=== PATIENT | male | born 1985 | race Caucasian/White ===

== ENCOUNTER 2018-10-07 13:33 | Emergency (ER) | payer OTHER ==
--- NOTE | 2018-10-07 13:57 | Emergency Department Record ---
History of Present Illness - General Chief Complaint: Abdominal Pain Stated Complaint: LT SIDE ABD PAIN Time Seen by Provider: 10/07/18 13:56 Source: Patient Mode of Arrival: Ambulatory Limitations: No limitations - History of Present Illness Initial Comments: 33 yo male presents with left flank pain for about 3 days. The intensity comes and goes but the pain is constant at all times. He has some decreased appetite. He normally has 6 BM's day and he is only having 2 the last 3 days. No rash. He has inguinal hernias that are not painful. NO cough or chest pain. No hematuria. He denies trauma. No fever. No diarrhea. No rash. No cough. He does lift a lot at work. MD Complaint: Abdominal pain -: Days(s) (3) Location: LUQ, LLQ Radiation: LUQ, LLQ Migration to: LUQ, LLQ Quality: Aching Consistency: Constant Improves With: Nothing Worsens With: Movement Context: Other Associated Symptoms: Anorexia, Constipation - Related Data Previous Rx's Medication Instructions Recorded Ciprofloxacin HCl [Cipro] 500 mg PO Q12HR #14 tablet 10/07/18 Metronidazole [Flagyl] 500 mg PO TID #21 tablet 10/07/18 Ondansetron [Zofran Odt] 4 mg PO NOW #15 tab.rapdis 10/07/18 Allergies Allergy/AdvReac Type Severity Reaction Status Date / Time No Known Allergies Allergy none Verified 10/07/18 13:59 Review of Systems Constitutional: Denies: Chills, Fever, Malaise, Weakness Eyes: Denies: Eye discharge ENT: Denies: Congestion, Throat pain Respiratory: Denies: Cough, Dyspnea Cardiovascular: Denies: Chest pain, Palpitations, Syncope Endocrine: Denies: Fatigue Gastrointestinal: Reports: Abdominal pain (left flank), Constipation, Nausea. Denies: Diarrhea Genitourinary: Denies: Dysuria, Frequency, Hematuria Musculoskeletal: Denies: Arthralgia, Back pain, Myalgia Skin: Denies: Bruising, Change in color, Rash Neurological: Denies: Headache, Numbness, Weakness Psychiatric: Denies: Anxiety Hematological/Lymphatic: Denies: Blood Clots, Easy bleeding, Easy bruising, Swollen glands Past Medical History - SOCIAL HISTORY Smoking Status: Never smoker Alcohol Use Comment: 4 days a week-beer - RESPIRATORY Hx Respiratory Disorders: No - CARDIOVASCULAR Hx Cardio Disorders: No - NEURO Hx Neuro Disorders: No - GI Hx GI Disorders: Yes Hx Rectal Bleeding: Yes (infrequently) - Hx Genitourinary Disorders: No - ENDOCRINE Hx Endocrine Disorders: No - MUSCULOSKELETAL Hx Musculoskeletal Disorders: No - PSYCH Hx Psych Problems: Yes Hx Depression: Yes (a few years ago) - HEMATOLOGY/ONCOLOGY Hx Hematology/Oncology Disorders: No Family Medical History Hx Cancer: Grandparents *Cancer Comment: Maternal grandmother-colon cancer Physical Exam - General General Appearance: Alert, Oriented x3, Cooperative, No acute distress Limitations: No limitations - Head Head exam: Atraumatic, Normal inspection - Eye Eye exam: Normal appearance. negative: Conjunctival injection - ENT ENT exam: Normal exam Ear exam: Normal external inspection Nasal Exam: Normal inspection Mouth exam: Normal external inspection Teeth exam: Normal inspection - Neck Neck exam: Normal inspection - Respiratory Respiratory exam: Normal lung sounds bilaterally. negative: Respiratory distress - Cardiovascular Cardiovascular Exam: Regular rate, Normal rhythm, Normal heart sounds Peripheral Pulses: 2+: Radial (R), Radial (L) - GI/Abdominal GI/Abdominal exam: Soft, Tenderness (tender along the left lateral abdomen, no rash, soft). negative: Normal bowel sounds, Diminished bowel sounds, Distended , Guarding, Rebound, Rigid - Rectal Rectal exam: Deferred - exam: Deferred - Extremities Extremities exam: Normal inspection, Full ROM, Normal capillary refill. negative: Tenderness Image of Full Body: 1 - tender to palpation, no rash, no swelling, normal appearance - Back Back exam: Reports: CVA tenderness (L), Full ROM, Muscle spasm, Tenderness. Denies: Paraspinal tenderness - Neurological Neurological exam: Alert, Oriented X3 - Psychiatric Psychiatric exam: Normal affect, Normal mood. negative: Agitated - Skin Skin exam: Abrasion. negative: Rash Course - Reevaluation(s) Reevaluation #1: The CBC was reviewed. WBC is 14 The CMP demonstrated sodium mildly decreased at 129, AG 18, Alk phos 83 AST and ALT normal. Lipase mildly elevated at 75 10/07/18 15:[address] was discussed with Dr Desouza of radiology. The patient has non specific fat stranding on the left near the tail of the pancreas extending inferior. No changes of the small or large bowel. No hematoma. Very small amount of non specific fluid. The etiology is not completely clear. The patient does admit to drinking a daily 6 pack of beer. He is afebrile, he is eating and drinking, the abdomen is very soft and benign. he is tender lateral flank area We discussed the options of over night observation vs recheck in the ED given the CT findings. He choose recheck in the ED. We discussed that the pancreas is a possibility with his alcohol consumption. He can have his labs rechecked in the ED on return visit. We discussed returning sooner if worse, any fever, vomiting or uncontrolled pain. He will not drink alcohol 10/07/18 15:52 No clear signs that this is an infection, but we discussed the elevated WBC counts and CT findings. He will be placed on Cipro and Flagyl as well as well as he is recheck over the next 24 hours 10/07/18 15:58 Medical Decision Making - Lab Data Result diagrams: 10/07/18 14:20 10/07/18 14:20 Disposition Disposition: Discharge Clinical Impression: Abdominal pain Disposition: Home, Self-Care Condition: (1) Good Instructions: Abdominal Pain (ED) Additional Instructions: Return immediately if the pain is uncontrolled, any fever, vomiting or new concerns or symptoms Return tomorrow without fail after work for a recheck of the labs and your examination Prescriptions: Ciprofloxacin HCl [Cipro] 500 mg PO Q12HR #14 tablet Metronidazole [Flagyl] 500 mg PO TID #21 tablet Ondansetron [Zofran Odt] 4 mg PO NOW #15 tab.rapdis Referrals: WILLAM PATEL [MEDICAL DOCTOR] - Forms: Patient Portal Access Time of Disposition: 15:59 Quality - Quality Measures Quality Measures: N/A - Blood Pressure Screening Does Patient Have Any of the Following: No Blood Pressure Classification: Pre-Hypertensive BP Reading Systolic Measurement: 139 Diastolic Measurement: 87 Screening for High Blood Pressure: < Pre-Hypertensive BP, F/U Documented > [ G8950] Pre-Hypertensive Follow-up Interventions: Referral to alternative/primary care provider.
[2018-10-07] MEDS ORDERED: ONDANSETRON HCL IV 4 MG/2 ML VIAL IVP ONE (14:05)
[2018-10-07] MEDS ORDERED: KETOROLAC 30 MG/ML VIAL IVP ONE (14:05)
[2018-10-07 14:40] LABS: BLOOD UREA NITROGEN 13 mg/dL (6-20); CREATININE 0.5 mg/dL (0.7-1.2); EST GLOMERULAR FILTRATION RATE > 60 mL/min; TOTAL PROTEIN 6.2 g/dL (6.6-8.7)
[2018-10-07 14:42] LABS: GLUCOSE,RANDOM 100 mg/dL (74-109)
[2018-10-07 14:45] LABS: ALB/GLOB RATIO 1.1 (1.1-1.8); ALBUMIN 3.3 g/dL (4.0-5.0); ALKALINE PHOSPHATASE 83 U/L (55-149); ALT/SGPT 5 U/L (<41); AST/SGOT 5 U/L (10.0-50.0)
[2018-10-07] MEDS ORDERED: 0.9 % SODIUM CHLORIDE 1,000 ML BAG IV ONE (14:47)
[2018-10-07 14:49] LABS: HEMATOCRIT 30.3 % (42.0-52.0); HEMOGLOBIN 13.9 gm/dl (14.0-18.0); MEAN CELL VOLUME 90.4 fl (81-97); MEAN CORPUSCULAR HGB CONC 45.9 g/dl (32-36); PLATELET COUNT 139 K/uL (130-400); RED BLOOD COUNT 3.35 M/uL (4.40-5.70); WHITE BLOOD COUNT W/O DIFF 14.2 K/uL (4.2-12.2)
[2018-10-07 14:51] LABS: MEAN CORPUSCULAR HEMOGLOBIN 41.4 pg (27-33); RED CELL DISTRIBUTION WIDTH 12.1 % (11.5-14.5)
[2018-10-07 14:52] LABS: GRAN % 73.9 % (47-80); LYMPH % 15.3 % (16-45); MEAN PLATELET VOLUME 9.7 fl (7.4-10.4); MONO % 0.2 % (0-9)
[2018-10-07] MEDS ORDERED: MORPHINE SULFATE 10 MG/ML VIAL IVP ONE (15:08)
[2018-10-07 15:09] LABS: URINE APPEARANCE CLEAR; URINE BILIRUBIN NEGATIVE (NEGATIVE); URINE BLOOD NEGATIVE (NEGATIVE); URINE COLOR YELLOW; URINE GLUCOSE (UA) NEGATIVE (NEGATIVE); URINE KETONE NEGATIVE (NEGATIVE); URINE LEUKOCYTE ESTERASE NEGATIVE (NEGATIVE); URINE NITRITE NEGATIVE (NEGATIVE); URINE PROTEIN NEGATIVE (NEGATIVE); URINE UROBILINOGEN 0.2 E.U./dL (0.20 - 1.00)
[2018-10-07] MEDS ORDERED: ONDANSETRON 4 MG ODT TABLET SL ONE (15:49)
[2018-10-07] MEDS ORDERED: HYDROCODONE/APAP 5/325MG TABLET PO ONE (15:49)
--- NOTE | 2018-10-09 21:30 | CT SCAN REPORT ---
EXAM: CT SCAN ABDOMEN/PELVIS WO CONTRAST HISTORY: LEFT ABDOMEN AND FLANK PAIN. POSSIBLE BLOOD IN STOOL. TECHNIQUE: Thin-collimation helical CT examination of the abdomen and pelvis is performed without oral or intravenous contrast administration. Lack of oral and IV contrast utilization limits evaluation of bowel and solid viscera. COMPARISON: None. FINDINGS: There is minor dependent atelectasis in each lung base. The lung bases are otherwise clear. No pleural or pericardial effusion. The heart is not enlarged. There is diffuse density of the liver relative to the spleen consistent with steatosis. No suspicious focal hepatic lesion is identified. No calcified gallstone is seen. The gallbladder lumen, however, appears mildly hyperdense suggesting sludge. No pericholecystic fluid nor definite wall thickening. No biliary ductal dilatation is seen. No focal splenic lesion is seen. There is, however, fat stranding about the pancreatic tail at the level of the splenic hilum with edema/fluid extending inferiorly along the medial margin of the spleen and within the mesentery with thickening of Gerota's fascia. The etiology of this is uncertain. This could represent focal inflammation of the pancreatic tail with inferior extension of this process. There is no associated wall thickening of adjacent small bowel nor colon, though evaluation of the left colon is limited by incomplete distention. Mesenteritis or spontaneous hemorrhage is also possible. The remainder of the pancreas is normal. The adrenal glands are unremarkable. There is a 3 mm nonobstructing calculus in the lower pole of the left kidney and a questionable tiny 1 mm calculus in the lower pole of the right kidney. No renal mass is seen. The renal collecting systems are normal in caliber throughout and there is no evidence of ureteral calculus. No intrinsic urinary bladder abnormality is noted. No pelvic mass, lymphadenopathy, or free pelvic fluid. No gross bowel dilatation nor bowel wall thickening is seen, though as stated above, evaluation of the left colon is limited by lack of distention. No free intraperitoneal air. The appendix is visualized and normal in appearance. No lytic or blastic bone lesion. IMPRESSION: 1. SINGLE NONOBSTRUCTING CALCULI IN EACH KIDNEY. NO EVIDENCE OF OBSTRUCTIVE UROPATHY. 1. HEPATIC STEATOSIS. 3. RELATIVE INCREASED DENSITY WITHIN THE GALLBLADDER LUMEN, LIKELY RELATING TO SLUDGE. 4. THERE IS FAT STRANDING EXTENDING FROM THE LEVEL OF THE PANCREATIC TAIL AND SPLENIC HILUM INFERIORLY AND LATERALLY INVOLVING THE GEROTA'S FASCIA, MESENTERY , AND LATEROCONAL FASCIA. THE ETIOLOGY OF THIS IS UNCERTAIN. THIS MAY RELATE TO AN INFLAMMATORY PROCESS, SUCH A FOCAL PANCREATITIS. MESENTERITIS COULD ALSO HAVE THIS APPEARANCE. SPONTANEOUS HEMORRHAGE IS ALSO WITHIN THE DIFFERENTIAL, THOUGH NO LARGE HEMATOMA IS SEEN. JOB NUMBER: [id number] [facility]
== END 2018-10-07 16:07 | disposition home or self-care (01) ==
LOC: ER 13:33
DX: R10.12 Left upper quadrant pain (principal); R10.11 Right upper quadrant pain; D72.829 Elevated white blood cell count, unspecified
CPT/HCPCS: 99284 ×2; 96374; 96375; 83690; 85025; 80053; 81003; 74176; J1885; J2405; J2270; J7030

== ENCOUNTER 2018-10-08 15:28 | Emergency (ER) | payer OTHER ==
--- NOTE | 2018-10-08 15:49 | Emergency Department Record ---
History of Present Illness - General Chief Complaint: Abdominal Pain Stated Complaint: ABD PAIN Time Seen by Provider: 10/08/18 15:29 Source: Patient Mode of Arrival: Ambulatory Limitations: No limitations - History of Present Illness Initial Comments: The patient is here for recheck of lab work due to his visit yesterday in the ER. He was seen due to a 2 day hx of L upper AP. The patient was having some loose stools initially but that resolved. He also denied any fever, nausea, or vomiting. The patient was seen in the ER and had a very minimally elevated Lipase on his labs and was minimally dehydrated. He did have some fat stranding by his pancreas but no other specific abnormality. The patient states since he left he is feeling very mildly better. He has no pain at rest or with sitting or lying flat but only with movement. He also denies any fever, nausea, vomiting , or diarrhea and he is on Flagyl and Cipro at home. MD Complaint: Abdominal pain Onset/Timin -: Days(s) Location: L Flank, LUQ Severity: Moderate Severity scale (1-10): 6 Quality: Aching, Cramping Improves With: Nothing Worsens With: Nothing - Related Data Previous Rx's Medication Instructions Recorded Ciprofloxacin HCl [Cipro] 500 mg PO Q12HR #14 tablet 10/07/18 Metronidazole [Flagyl] 500 mg PO TID #21 tablet 10/07/18 Ondansetron [Zofran Odt] 4 mg PO NOW #15 tab.rapdis 10/07/18 Potassium Chloride 20 meq PO DAILY #7 tab.er.prt 10/08/18 Allergies Allergy/AdvReac Type Severity Reaction Status Date / Time No Known Allergies Allergy none Verified 10/08/18 15:37 Travel Screening - Travel/Exposure Within Last 30 Days Have you traveled within the last 30 days?: No - Travel/Exposure Within Last Year Have you traveled outside the [place] in the last year?: No - Additonal Travel Details Have you been exposed to anyone with a communicable illness?: No - Travel Symptoms Symptom Screening: None Review of Systems Constitutional: Denies: Chills, Fever Eyes: Denies: Eye discharge ENT: Denies: Congestion Respiratory: Denies: Cough, Dyspnea Cardiovascular: Denies: Arrhythmia Past Medical History - SOCIAL HISTORY Smoking Status: Never smoker Alcohol Use: Occasional Alcohol Use Comment: daily beer Drug Use: None - RESPIRATORY Hx Respiratory Disorders: No - CARDIOVASCULAR Hx Cardio Disorders: No - NEURO Hx Neuro Disorders: No - GI Hx GI Disorders: Yes Hx Rectal Bleeding: Yes (infrequently) Comment:: hernia - Hx Genitourinary Disorders: No - ENDOCRINE Hx Endocrine Disorders: No - MUSCULOSKELETAL Hx Musculoskeletal Disorders: No - PSYCH Hx Psych Problems: Yes Hx Depression: Yes (a few years ago) - HEMATOLOGY/ONCOLOGY Hx Hematology/Oncology Disorders: No Family Medical History Any Significant Family History?: Yes Hx Cancer: Grandparents *Cancer Comment: Maternal grandmother-colon cancer Physical Exam - General General Appearance: Alert, Oriented x3, Cooperative, No acute distress - Head Head exam: Atraumatic, Normocephalic, Normal inspection - Eye Eye exam: Normal appearance, PERRL - ENT Throat exam: Normal inspection. negative: Tonsillar erythema, Tonsillar exudate - Neck Neck exam: Normal inspection, Full ROM. negative: Tenderness - Respiratory Respiratory exam: Normal lung sounds bilaterally. negative: Respiratory distress - Cardiovascular Cardiovascular Exam: Regular rate, Normal rhythm, Normal heart sounds - GI/Abdominal GI/Abdominal exam: Soft, Tenderness (There is mild LUQ tenderness.). negative: Distended, Rebound, Rigid - Extremities Extremities exam: Normal inspection, Full ROM, Normal capillary refill. negative: Tenderness - Neurological Neurological exam: Alert, Normal gait. negative: Abnormal gait, Motor sensory deficit Course Vital Signs 10/08/18 15:31 Temperature 97.7 F Pulse Rate 96 H Respiratory 20 Rate Blood Pressure 136/97 Pulse Ox 99 - Reevaluation(s) Reevaluation #1: The patient is doing well at this time. He is resting comfortably and in no pain presently. He also has no nausea, vomiting, or diarrhea and is eating normally. I did discuss the lab tests that were basically similar to yesterdays test results. It appears the patient may have a low grade pancreatitis but clinically he does not seem severe enough to stay in the hospital. We will have the patient rest at home and recheck him tomorrow in the ER since he has no PCP to follow up with. 10/08/18 16:42 Medical Decision Making - Data Complexity MDM Data: Labs Ordered and/or Reviewed - Lab Data Result diagrams: 10/08/18 15:45 10/08/18 15:45 Disposition Disposition: Discharge Clinical Impression: Abdominal pain Qualifiers: Abdominal location: unspecified location Qualified Code(s): R10.9 - Unspecified abdominal pain Disposition: Home, Self-Care Condition: (2) Stable Instructions: Abdominal Pain (ED) Additional Instructions: Please continue your home pain medicines and take the oral potassium as directed. Please eat a very bland diet and drink plenty of fluids but do not drink alcohol. Return to the ER tomorrow morning for recheck and sooner for any worsening symptoms. Prescriptions: Potassium Chloride 20 meq PO DAILY #7 tab.er.prt Forms: Patient Portal Access Time of Disposition: 16:41 Quality - Quality Measures Quality Measures: N/A - Blood Pressure Screening View Details: Yes Does Patient Have Any of the Following: No Blood Pressure Classification: Hypertensive Reading Systolic Measurement: 136 Diastolic Measurement: 97 Screening for High Blood Pressure: < First Hypertensive BP, F/U Documented > [ G8950] First Hypertensive Follow-up Interventions: Referral to alternative/primary care provider.
[2018-10-08 15:52] LABS: BASO % 0.1 % (0-6); EOS % 0.8 % (0-6); GRAN % 70.5 % (47-80); HEMATOCRIT 33.6 % (42.0-52.0); HEMOGLOBIN 11.9 gm/dl (14.0-18.0); LYMPH % 20.4 % (16-45); MEAN CELL VOLUME 89.6 fl (81-97); MEAN CORPUSCULAR HEMOGLOBIN 31.7 pg (27-33); MEAN CORPUSCULAR HGB CONC 35.4 g/dl (32-36); MEAN PLATELET VOLUME 9.3 fl (7.4-10.4); MONO % 8.2 % (0-9); PLATELET COUNT 163 K/uL (130-400); RED BLOOD COUNT 3.75 M/uL (4.40-5.70); RED CELL DISTRIBUTION WIDTH 12.2 % (11.5-14.5); WHITE BLOOD COUNT W/O DIFF 9.3 K/uL (4.2-12.2)
[2018-10-08 16:16] LABS: BLOOD UREA NITROGEN 10 mg/dL (6-20); CREATININE 0.5 mg/dL (0.7-1.2); EST GLOMERULAR FILTRATION RATE > 60 mL/min
[2018-10-08 16:17] LABS: LIPASE 82 U/L (13-60); TOTAL PROTEIN 6.6 g/dL (6.6-8.7)
[2018-10-08 16:19] LABS: GLUCOSE,RANDOM 127 mg/dL (74-109)
[2018-10-08 16:21] LABS: ALB/GLOB RATIO 1.1 (1.1-1.8); ALBUMIN 3.5 g/dL (4.0-5.0); ALT/SGPT 66 U/L (<41); AST/SGOT 76 U/L (10.0-50.0)
[2018-10-08 16:22] LABS: ALKALINE PHOSPHATASE 95 U/L (55-149)
[2018-10-08] MEDS ORDERED: POTASSIUM CHLORIDE 20 MEQ TABLET PO ONE (16:32)
== END 2018-10-08 16:49 | disposition home or self-care (01) ==
LOC: ER 15:28
DX: R10.12 Left upper quadrant pain (principal)
CPT/HCPCS: 80053; 83690; 85025; 99283

== ENCOUNTER 2018-10-09 08:07 | Emergency (ER) | payer OTHER ==
[2018-10-09 08:24] LABS: BASO % 0.3 % (0-6); EOS % 1.7 % (0-6); GRAN % 68.6 % (47-80); HEMOGLOBIN 13.1 gm/dl (14.0-18.0); LYMPH % 20.1 % (16-45); MEAN CELL VOLUME 89.4 fl (81-97); MEAN CORPUSCULAR HEMOGLOBIN 31.6 pg (27-33); MEAN CORPUSCULAR HGB CONC 35.4 g/dl (32-36); MEAN PLATELET VOLUME 9.4 fl (7.4-10.4); MONO % 9.3 % (0-9); PLATELET COUNT 200 K/uL (130-400); RED BLOOD COUNT 4.14 M/uL (4.40-5.70); RED CELL DISTRIBUTION WIDTH 12.4 % (11.5-14.5)
[2018-10-09 08:38] LABS: BLOOD UREA NITROGEN 7 mg/dL (6-20); CREATININE 0.6 mg/dL (0.7-1.2); EST GLOMERULAR FILTRATION RATE > 60 mL/min
[2018-10-09 08:39] LABS: LIPASE 52 U/L (13-60); TOTAL PROTEIN 7.1 g/dL (6.6-8.7)
[2018-10-09 08:41] LABS: GLUCOSE,RANDOM 106 mg/dL (74-109)
[2018-10-09 08:44] LABS: ALBUMIN 3.5 g/dL (4.0-5.0); ALKALINE PHOSPHATASE 95 U/L (55-149); ALT/SGPT 73 U/L (<41); AST/SGOT 99 U/L (10.0-50.0); BILIRUBIN,DIRECT 0.3 mg/dL (0-0.3)
--- NOTE | 2018-10-09 08:51 | Emergency Department Record ---
History of Present Illness - General Chief Complaint: Recheck - Other Stated Complaint: RECHECK BLOOD WORK Time Seen by Provider: 10/09/18 08:09 Source: Patient Mode of arrival: Ambulatory Limitations: No limitations - History of Present Illness Initial Comments: The patient is here for repeat lab work due to persistent AP for the last 5 days. He was diagnosed with mild pancreatitis over the last 2 days. He now is doing much better and states his AP is much improved. There is no nausea, vomiting, diarrhea, tremors or anxiety. He is able to eat with no problems. MD Complaint: Other Onset/Timin -: Days(s) Initial Visit For: Other Returns Today for: Called because of abnormal lab/test - Related Data Previous Rx's Medication Instructions Recorded Ciprofloxacin HCl [Cipro] 500 mg PO Q12HR #14 tablet 10/07/18 Metronidazole [Flagyl] 500 mg PO TID #21 tablet 10/07/18 Ondansetron [Zofran Odt] 4 mg PO NOW #15 tab.rapdis 10/07/18 Potassium Chloride 20 meq PO DAILY #7 tab.er.prt 10/08/18 Allergies Allergy/AdvReac Type Severity Reaction Status Date / Time No Known Allergies Allergy none Verified 10/09/18 08:16 Travel Screening - Travel/Exposure Within Last 30 Days Have you traveled within the last 30 days?: No - Travel/Exposure Within Last Year Have you traveled outside the [place] in the last year?: No - Additonal Travel Details Have you been exposed to anyone with a communicable illness?: No - Travel Symptoms Symptom Screening: None Review of Systems Constitutional: Denies: Chills, Fever Eyes: Denies: Eye discharge ENT: Denies: Congestion Respiratory: Denies: Cough, Dyspnea Past Medical History - SOCIAL HISTORY Smoking Status: Never smoker Alcohol Use Comment: none in 2 days Drug Use: None - RESPIRATORY Hx Respiratory Disorders: No - CARDIOVASCULAR Hx Cardio Disorders: No - NEURO Hx Neuro Disorders: No - GI Hx GI Disorders: Yes Hx Rectal Bleeding: Yes (infrequently) Comment:: hernia - Hx Genitourinary Disorders: No - ENDOCRINE Hx Endocrine Disorders: No - MUSCULOSKELETAL Hx Musculoskeletal Disorders: No - PSYCH Hx Psych Problems: Yes Hx Depression: Yes (a few years ago) - HEMATOLOGY/ONCOLOGY Hx Hematology/Oncology Disorders: No Family Medical History Any Significant Family History?: Yes Hx Cancer: Grandparents *Cancer Comment: Maternal grandmother-colon cancer Physical Exam - General General Appearance: Alert, Oriented x3, Cooperative, No acute distress - Head Head exam: Atraumatic, Normocephalic, Normal inspection - Eye Eye exam: Normal appearance - Neck Neck exam: Normal inspection, Full ROM. negative: Tenderness - Respiratory Respiratory exam: Normal lung sounds bilaterally. negative: Respiratory distress - Cardiovascular Cardiovascular Exam: Regular rate, Normal rhythm, Normal heart sounds - GI/Abdominal GI/Abdominal exam: Soft, Normal bowel sounds. negative: Distended, Rebound, Rigid, Tenderness - Extremities Extremities exam: Normal inspection, Full ROM, Normal capillary refill. negative: Tenderness - Neurological Neurological exam: Alert, Normal gait, Oriented X3. negative: Abnormal gait, Motor sensory deficit Course Vital Signs 10/09/18 08:11 Temperature 98.1 F Pulse Rate 87 Respiratory 20 Rate Blood Pressure 138/100 Pulse Ox 100 - Reevaluation(s) Reevaluation #1: The patient is doing very well at this time. I did discuss the need for further evaluation with a family doctor and also a GI doctor due to the AP, elevated liver enzymes and abnormal CT. The patient understands and will F/U. 10/09/18 08:59 Medical Decision Making - Lab Data Result diagrams: 10/09/18 08:17 10/09/18 08:17 Lab Results 10/09/18 10/09/18 10/09/18 Range/Units 08:17 08:17 08:17 WBC 7.0 (4.2-12.2) K/uL RBC 4.14 L (4.40-5.70) M/uL Hgb 13.1 L (14.0-18.0) gm/dl Hct 37.0 L (42.0-52.0) % MCV 89.4 (81-97) fl MCH 31.6 (27-33) pg MCHC 35.4 (32-36) g/dl RDW 12.4 (11.5-14.5) % Plt Count 200 (130-400) K/uL MPV 9.4 (7.4-10.4) fl Gran % 68.6 (47-80) % Lymphocytes % 20.1 (16-45) % Monocytes % 9.3 H (0-9) % Eosinophils % 1.7 (0-6) % Basophils % 0.3 (0-6) % PT 10.0 (9.5-12.1) SECONDS INR 1.0 Sodium 137 (136-145) mmol/L Potassium 3.4 (3.4-4.5) mmol/L Chloride 99 (98-107) mmol/L Carbon Dioxide 24.0 (22-29) mmol/L Anion Gap 14.0 (7-16) BUN 7 (6-20) mg/dL Creatinine 0.6 L (0.7-1.2) mg/dL Estimated GFR > 60 mL/min Random Glucose 106 (74-109) mg/dL Calcium 8.3 L (8.6-10.0) mg/dL Total Bilirubin 0.70 (0.2-1.0) mg/dL Direct Bilirubin 0.3 (0-0.3) mg/dL AST 99 H (10.0-50.0) U/L ALT 73 H (<41) U/L Alkaline Phosphatase 95 (55-149) U/L Total Protein 7.1 (6.6-8.7) g/dL Albumin 3.5 L (4.0-5.0) g/dL Lipase 52 (13-60) U/L Disposition Disposition: Discharge Clinical Impression: Abdominal pain Qualifiers: Abdominal location: unspecified location Qualified Code(s): R10.9 - Unspecified abdominal pain Disposition: Home, Self-Care Condition: (2) Stable Instructions: Abdominal Pain (ED) Additional Instructions: Please advance to a regular diet. Please see a family doctor in 1-2 weeks for recheck and to schedule a repeat CT in 1-2 months. Also follow up with Dr. Mendoza in the Specialty clinic for an EGD. Referrals: [facility] Specialty Clinics [Provider Group] Forms: Patient Portal Access Time of Disposition: 08:50 Quality - Quality Measures Quality Measures: N/A - Blood Pressure Screening View Details: Yes Does Patient Have Any of the Following: No Blood Pressure Classification: Hypertensive Reading Systolic Measurement: 138 Diastolic Measurement: 100 Screening for High Blood Pressure: < First Hypertensive BP, F/U Documented > [ G8950] First Hypertensive Follow-up Interventions: Referral to alternative/primary care provider.
== END 2018-10-09 08:55 | disposition home or self-care (01) ==
LOC: ER 08:07
DX: R94.5 Abnormal results of liver function studies (principal); R10.9 Unspecified abdominal pain
CPT/HCPCS: 80048; 80076; 83690; 85025; 85610; 99282

== ENCOUNTER 2019-03-31 14:30 | Emergency (ER) | payer OTHER ==
--- NOTE | 2019-03-31 14:39 | Emergency Department Record ---
History of Present Illness - General Chief complaint: ENT Stated complaint: SOMETHING IN THROAT Time Seen by Provider: 03/31/19 14:32 Source: Patient Mode of Arrival: Ambulatory Limitations: No limitations - History of Present Illness Initial comments: 33 yo male presents with right side upper neck pain. He reports the pain started after throwing up this morning. He had chicken last night with macaroni and cheese. He is unaware of bones in the chicken but he feels like something is injured or stuck. He has a normal voice. No fever. No cough to day. He is able to drink fluids. The pain is slowly getting better throughout the day but not gone. MD complaint: Sore throat -: Hour(s) Location: Throat Severity: Moderate Quality: Aching Consistency: Constant Improves with: None Worsens with: Swallowing Associated Symptoms: Other (None) - Related Data Home Medications Medication Instructions Recorded Confirmed Last Taken No Home Med [NO HOME MEDS] 03/31/19 03/31/19 Unknown Allergies Allergy/AdvReac Type Severity Reaction Status Date / Time No Known Allergies Allergy none Verified 03/31/19 14:32 Review of Systems Constitutional: Denies: Chills, Fever, Malaise, Weakness Eyes: Denies: Eye discharge, Eye pain, Photophobia, Vision change ENT: Reports: Throat pain. Denies: Congestion Respiratory: Denies: Cough, Dyspnea, Hemoptysis, Stridor, Wheezes Cardiovascular: Denies: Chest pain, Palpitations, Syncope Endocrine: Denies: Fatigue, Polydipsia Gastrointestinal: Reports: Nausea, Vomiting. Denies: Abdominal pain, Diarrhea Genitourinary: Denies: Dysuria, Frequency, Hematuria Musculoskeletal: Denies: Arthralgia, Back pain, Myalgia Skin: Denies: Bruising, Change in color, Rash Neurological: Denies: Headache Psychiatric: Denies: Anxiety Hematological/Lymphatic: Denies: Easy bleeding, Easy bruising Past Medical History - SOCIAL HISTORY Smoking Status: Never smoker Alcohol Use: None Drug Use: None - RESPIRATORY Hx Respiratory Disorders: No - CARDIOVASCULAR Hx Cardio Disorders: No - NEURO Hx Neuro Disorders: No - GI Hx GI Disorders: Yes Hx Rectal Bleeding: Yes (infrequently) Comment:: hernia - Hx Genitourinary Disorders: No - ENDOCRINE Hx Endocrine Disorders: No - MUSCULOSKELETAL Hx Musculoskeletal Disorders: No - PSYCH Hx Psych Problems: Yes Hx Depression: Yes (a few years ago) - HEMATOLOGY/ONCOLOGY Hx Hematology/Oncology Disorders: No Family Medical History Any Significant Family History?: Yes Hx Cancer: Grandparents *Cancer Comment: Maternal grandmother-colon cancer Physical Exam - General General Appearance: Alert, Oriented x3, Cooperative, No acute distress Limitations: No limitations - Head Head exam: Atraumatic, Normal inspection - Eye Eye exam: Normal appearance, PERRL. negative: Conjunctival injection, Scleral icterus - ENT ENT exam: Normal exam, Mucous membranes moist, Normal orophraynx. negative: Mucous membranes dry Ear exam: Normal external inspection Nasal Exam: Normal inspection Mouth exam: Normal external inspection, Tongue normal. negative: Drooling, Muffled voice, Tongue elevation, Trismus Teeth exam: Normal inspection Throat exam: Normal inspection, Other (Normal inspection). negative: Tonsillar erythema, Tonsillomegaly, Tonsillar exudate, R peritonsillar mass, L peritonsillar mass - Neck Neck exam: Normal inspection, Full ROM, Tenderness. negative: Lymphadenopathy, Meningismus, Thyromegaly, Other - Respiratory Respiratory exam: Normal lung sounds bilaterally. negative: Respiratory distress - Cardiovascular Cardiovascular Exam: Regular rate, Normal rhythm, Normal heart sounds - GI/Abdominal GI/Abdominal exam: Soft - Rectal Rectal exam: Deferred - exam: Deferred - Neurological Neurological exam: Alert, Oriented X3 - Psychiatric Psychiatric exam: Normal affect, Normal mood. negative: Agitated, Anxious - Skin Skin exam: Dry, Intact, Normal color, Warm Course - Reevaluation(s) Reevaluation #1: 03/31/19 15:[address] scan of the neck was negative for acute process We discussed soft diet starting with liquids then advancing We discussed reasons to return and be seen as well if the symptoms persist Disposition Disposition: Discharge Clinical Impression: Throat pain in adult Disposition: Home, Self-Care Condition: (1) Good Instructions: Esophageal Foreign Body (ED) Additional Instructions: Liquid diet slowly adding in soft foods the next 24 hours Then slowly add soft foods that are chewed Be seen or return if worse or any new worsening concerns Forms: Patient Portal Access Time of Disposition: 14:45 Quality - Quality Measures Quality Measures: N/A - Blood Pressure Screening Does Patient Have Any of the Following: No Blood Pressure Classification: Hypertensive Reading Systolic Measurement: 137 Diastolic Measurement: 121 Screening for High Blood Pressure: < Pre-Hypertensive BP, F/U Documented > [G8950] Pre-Hypertensive Follow-up Interventions: Referral to alternative/primary care provider.
--- NOTE | 2019-04-01 14:48 | CT SCAN REPORT ---
EXAM: CT OF THE NECK SOFT TISSUES WITHOUT CONTRAST HISTORY: FEELS LIKE A FOREIGN BODY IS STUCK IN THE THROAT. TECHNIQUE: Thin collimation helical CT examination of the neck was performed without intravenous contrast. Coronal and sagittal reformatted images are generated and reviewed. Comparison: None. FINDINGS: NASOPHARYNX: Normal. OROPHARYNX: Normal. HYPOPHARYNX: Normal. The epiglottis and aryepiglottic folds are not thickened and the piriform sinuses are well aerated. LARYNX: No abnormality identified though evaluation is limited as the glottis is closed. TRACHEA: Clear. Positioned in the midline. The parotid glands and submandibular glands are symmetric and normal in appearance. The thyroid gland is normal in size and uniform in density. No cervical mass nor adenopathy. No mass or adenopathy in the visualized superior mediastinum. The upper lungs are clear. A normal variant azygos fissure and lobe is demonstrated. No radiopaque foreign body identified. IMPRESSION: NEGATIVE NONCONTRAST CT APPEARANCE OF THE NECK. NO RADIOPAQUE FOREIGN BODY IDENTIFIED. JOB NUMBER: [id number] [facility]
== END 2019-03-31 15:17 | disposition home or self-care (01) ==
LOC: ER 14:30
DX: R07.0 Pain in throat (principal); M54.2 Cervicalgia
CPT/HCPCS: 70490; 99283

== ENCOUNTER 2019-04-18 10:04 | Emergency (ER) | payer SELFPAY ==
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
[2019-04-18] MEDS ORDERED: IBUPROFEN 600 MG TABLET PO ONE (11:32)
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
== END 2019-04-18 11:51 | disposition home or self-care (01) ==
LOC: ER 10:04
DX: S20.211A Contusion of right front wall of thorax, initial encounter (principal); V47.6XXA Car passenger injured in collision with fixed or stationary object in traffic accident, initial encounter
CPT/HCPCS: 99283